=== PATIENT | female | born 1980 | race Caucasian/White ===

== ENCOUNTER 2022-04-22 13:56 | Emergency (ER) | payer OTHER, SELFPAY ==
--- NOTE | 2022-04-22 14:23 | DI.RAD.S_ITS ---
PROCEDURE: XR KNEE RT 3V INDICATIONS: fall pain TECHNIQUE: 3 views of the knee were acquired. COMPARISON: None. FINDINGS: Bones: No fractures or dislocations. No suspicious bony lesions. Soft tissues: No joint effusion. No suspicious soft tissue calcifications. IMPRESSION: No evidence acute bony abnormality of the right knee. If clinical suspicion and/or symptoms persist, further assessment with repeat plain films, or advanced imaging (e.g., CT, MRI, or bone scan) may be helpful for further assessment. Dictated by: Gume Quintana M.D. on 04/22/2022 at 14:58 Approved by: Gume Quintana M.D. on 04/22/2022 at 14:58
[2022-04-22 14:27] VITALS: BP 112/64; PULSE 70; RESP 18; TEMP 36.8; O2SAT 98; BMI 26.2
[2022-04-22] MEDS: BUPIVACAINE 0.5% W/ EPI (PF) 30 ML VIAL (15:06)
--- NOTE | 2022-04-22 15:14 | ED.LOWEXIN ---
HPI - Extremity Injury (Lower) General Chief Complaint: Extremity Injury, Lower Stated Complaint: TRAIL RUNNING FALL RIGHT KNEE Time Seen by Provider: 04/22/22 14:23 Source: patient Mode of arrival: Family Vehicle History of Present Illness HPI Narrative: Patient is a 41 year old healthy female who presents with right knee injury and laceration. She and her were trail running when she tripped and fell. She landed on the ground cutting open her right knee and he landed on top of her. She has laceration on the knee. She was able to ambulate. No other injury. Left knee has a small abrasion. No numbness tingling or weakness. Related Data Previous Rx's Medication Instructions Recorded cephalexin 500 mg capsule 500 mg PO TID #30 caps 04/22/22 Review of Systems Review of Systems Narrative: GENERAL: Denies chills,fever HEENT: Denies throat pain RESPIRATORY: Denies dyspnea, cough, wheezing CARDIOVASCULAR: Denies chest pain, palpitations GASTROINTESTINAL: Denies nausea, vomiting MUSCULOSKELETAL: See HPI SKIN: See HPI NEUROLOGIC: Denies weakness, dizziness, headache, numbness 8 point review of systems is negative except for those stated above and HPI Patient History Social History Smoking Status: Never smoker Smoking Status: Never smoker alcohol intake frequency: 0-2 drinks per day Substance Use Type: does not use Exam Initial Vital Signs Initial Vital Signs: Vital Signs Temperature 98.3 F 04/22/22 14:27 Pulse Rate 70 04/22/22 14:27 Respiratory Rate 18 04/22/22 14:27 Blood Pressure 112/64 04/22/22 14:27 Pulse Oximetry 98 04/22/22 14:27 Oxygen Delivery Method 04/22/22 14:27 GENERAL: Well-appearing 41-year-old female CARDIOVASCULAR: peripheral pulses in tact, cap refill <2 sec RESPIRATORY: No respiratory distress, speaks in full sentences without difficulty EXTREMITIES: Normal range of motion, no clubbing or edema. Neurovascularly intact Right knee laceration significant debris in knee. Able to flex and extend knee. Adipose tissue is noted no tendon. Distal pedal pulse intact NEUROLOGICAL: Cranial nerves II through XII grossly intact. Normal gait and speech. SKIN: Warm, dry, no petechiae, no rashes or lesions. Procedures Laceration Repair Laceration 1: Site: lower extremity Side (If applicable): right Size (cm): 6.5 Local Anesthetic: bupivacaine 0.25% and with epi Amount of anesthesia used (mL): 15 Pre-repair: wound explored, irrigated extensively, deep structures intact, extensive debridement and cleansed with chlorhexadine Skin layer closed with: nylon Skin layer suture size: 4-0 Number of sutures: 4 Technique: simple, interrupted (3) and other (1 horizontal mattress) Course Orders Ordered: Discontinued Medications Bacitracin (Bacitracin Oint 0.9 Gm Pckt) 1 applic TOP NOW ONE Stop: 04/22/22 16:20 Last Admin: 04/22/22 16:35 Dose: 1 applic Documented By: JUAN Vital Signs Vital signs: Vital Signs - 8 hr 04/22/22 14:27 04/22/22 16:35 Temperature 98.3 F Pulse Rate 70 62 Respiratory Rate 18 18 Blood Pressure 112/64 106/59 L Pulse Oximetry 98 97 Oxygen Delivery Method Room Air Room Air MDM - Extremity Injury (Lower) Imaging Data Extremity x-ray #1: Radiologist's Impression: [address] [place] [id number] XRay Report Signed Patient: Khloe Lopez MR#: [id number] : 1980 Acct:[id number] Age/Sex: 41 / F Date of Service: 04/22/22 Loc: Accession Number: [id number] ?? Procedure: XR knee RT 3V Ordering Provider: Brittany Almanzar D.O. PROCEDURE:? XR KNEE RT 3V ? INDICATIONS:? fall pain ? TECHNIQUE:? 3 views of the knee were acquired.? ? COMPARISON:? None. ? FINDINGS:? ? Bones:? No fractures or dislocations.? No suspicious bony lesions.? ? Soft tissues:? No joint effusion.? No suspicious soft tissue calcifications.? ? ? IMPRESSION:? No evidence acute bony abnormality of the right knee. ? If clinical suspicion and/or symptoms persist, further assessment with repeat plain films, or advanced imaging (e.g., CT, MRI, or bone scan) may be helpful for further assessment. ? Dictated by: Gume Quintana M.D. on 04/22/2022 at 14:58 ? ? Approved by: Gume Quintana M.D. on 04/22/2022 at 14:58 ? MDM Narrative Medical decision making narrative: The patient's knee is extensively debrided there is quite a bit of debris in there. It is loosely closed. She is given antibiotics. Education on when to return to the ER and signs of infection. Discharge Plan Departure Patient Disposition: Home Clinical Impression: Right knee sprain, Laceration Instructions: DI for Knee Sprain, DI for Laceration Repair -- Complex Activity Restrictions/Additional Instructions: *You have been diagnosed with right knee sprain and laceration *What to do: At this time avoid water activities. Have sutures removed in about 7 days. elevate and ice. Let your knee heall before you start running again. Apply antibiotic ointment 1-2 times daily Your knee wound is very dirty. Concerned might develop into worsening infection. *Continue to take medications as directed Keflex 500 mg 3 times a day for 10 days Ibuprofen 600 mg every 6 hours if needed for [id number] Tylenol 1000 mg every 6 hours if needed for [id number] pain *Follow up with your primary care provider in 2-3 days or call [phone] *Return to ER if you should have increasing redness fever, drainage pain numbness tingling weakness or any new, worsening or concerning symptoms Prescriptions: New cephalexin 500 mg capsule 500 mg PO TID Qty: 30 0RF Visit Report Forms: Patient Portal/API
[2022-04-22 16:35] VITALS: BP 106/59; PULSE 62; RESP 18; O2SAT 97
[2022-04-22] MEDS: BACITRACIN OINT 0.9 GM PCKT 1 APPLIC TOP (16:35)
== END 2022-04-22 16:43 | disposition home or self-care (01) ==
PROVIDERS: Emergency Provider Emergency Medicine
DX: S83.91XA Sprain of unspecified site of right knee, initial encounter (principal); S81.011A Laceration without foreign body, right knee, initial encounter; W19.XXXA Unspecified fall, initial encounter
CPT/HCPCS: 12002; 73562; 99283; 99284